=== PATIENT | male | born 1965 | race Caucasian/White ===

== ENCOUNTER → 2018-04-10 | Outpatient (CLI) | payer BC ==
--- NOTE | 2018-04-10 09:19 | CT ---
EXAMINATION TYPE: CT chest w con DATE OF EXAM: 04/10/2018 COMPARISON: NONE HISTORY: Former smoker, cough CT DLP: 562 mGycm. Automated Exposure Control for Dose Reduction was Utilized. TECHNIQUE: CT scan of the thorax is performed following with IV Contrast, patient injected with 100m L mL of Isovue 300. FINDINGS: LUNGS: Mild to moderate underlying emphysematous change is felt present. In the midlungs there is ret iculation and subpleural fibrosis anteriorly with scattered areas of linear scarring centrally. No garcia spicious parenchymal nodule or mass is identified. No worrisome consolidation is seen. Mild central p eribronchial wall thickening is noted. MEDIASTINUM: There are no greater than 1 cm hilar or mediastinal lymph nodes. Prominent but subcentim eter prevascular, right tracheobronchial, subcarinal, and bilateral hilar lymph nodes are present No cardiomegaly or pericardial effusion is seen. OTHER: Cholecystectomy clips are seen. There are calcifications superior to this near left portal vei n at level of linda hepatis axial image 55 presumed benign. There is subcentimeter low dense lesion r ight hepatic lobe axial image 61 too small to further characterize presumed benign. Small degree of b ilateral gynecomastia is noted. Mild to moderate multilevel anterior and lateral spurring in the mid to lower thoracic spine is present. IMPRESSION: Mild to moderate underlying emphysematous change and mild parenchymal fibrosis without garcia spicious acute pulmonary process.
== END | disposition home or self-care (01) ==
LOC: RADCTMAIN 07:23
PROVIDERS: ATTEND Internal Medicine
DX: J43.9 Emphysema, unspecified (principal); J84.10 Pulmonary fibrosis, unspecified; D72.829 Elevated white blood cell count, unspecified
CPT/HCPCS: 71260; Q9967

== ENCOUNTER → 2019-07-12 | Outpatient (CLI) | payer BC ==
--- NOTE | 2019-07-13 15:40 | CT ---
EXAMINATION TYPE: CT chest w con DATE OF EXAM: 07/12/2019 COMPARISON: 04/10/2018 HISTORY: Abnormal findings of lung field, cough. Pt is smoker CT DLP: 394.90 mGycm. Automated Exposure Control for Dose Reduction was Utilized. TECHNIQUE: CT scan of the thorax is performed following with IV Contrast, patient injected with 100 mL of Isovue 300. FINDINGS: LUNGS: There is an oval smoothly marginated 0.8 x 0.6 cm solid nodule in the right middle lobe on ser ies 4 image 31, retrospectively stable from the prior exam. This is difficult to visualize as it is d irectly adjacent to pulmonary vasculature. There are geographic areas of groundglass density throughout the lungs. This can be on the basis of f luid overload most commonly or pneumonitis. Moderate centrilobular and paraseptal emphysematous agustin es with scattered areas of subsegmental atelectasis and few blebs. No focal consolidation. MEDIASTINUM: Incidentally noted direct origin of the left vertebral artery from the aortic arch. Medi astinal lymph nodes are upper limits of normal size measuring up to 1.0 cm but stable from the prior. No pericardial effusion is seen. OTHER: Diffuse hypoattenuation of the hepatic parenchyma suggests mild degree hepatic steatosis and l imits evaluation for hepatic masses. Hypoattenuated 8 mm lesion is too small to accurately characteri ze and similar to the prior. More focal fatty infiltration is seen near the gallbladder fossa and por ta hepatis. Surgical clip is seen medial to the inferior margin of the liver. Calcifications near the linda hepatis are again stable. Possible accessory pancreatic duct. 2.6 cm left renal cyst. Mild mul tilevel degenerative changes of the spine. IMPRESSION: 1. Oval smoothly marginated right middle lobe 0.8 cm nodule, retrospectively prior since 04/10/2018. C T in 12 months is recommended to establish long-term stability. 2. Moderate emphysematous change and geographic groundglass opacities that are most commonly on the b asis of fluid overload but can also be seen in pneumonitis and other etiologies. 3. Incidentally noted mild degree hepatic steatosis, stable to small to accurately characterize hepat ic lesion, possible duplicated pancreatic duct, benign-appearing left renal cyst, and mild degenerati ve changes of the spine.
== END | disposition home or self-care (01) ==
LOC: RADCTMAIN 17:15
PROVIDERS: ATTEND Internal Medicine
DX: J43.9 Emphysema, unspecified (principal); R91.1 Solitary pulmonary nodule; J98.4 Other disorders of lung; J18.9 Pneumonia, unspecified organism; E87.70 Fluid overload, unspecified; R05 Cough; D72.9 Disorder of white blood cells, unspecified
CPT/HCPCS: 71260; Q9967